=== PATIENT | female | born 1995 | race Caucasian/White ===

== ENCOUNTER 2018-11-02 06:28 | Emergency (ER) | payer MEDICAID, OTHER ==
[~2018-11-02] VITALS: Ht 170.2 cm; Wt 108.4 kg
[2018-11-02 06:30] VITALS: BP 131/64; PULSE 102; RESP 18; Ht 170.2 cm; Wt 108.4 kg
[2018-11-02] MEDS ORDERED: BENZ-6 PO (07:24)
[2018-11-02] MEDS ORDERED: MED4DP PO (07:24)
[2018-11-02] MEDS ORDERED: PROM6.2515 PO (07:24)
[2018-11-02] MEDS ORDERED: ALBU8.5H8 INH (07:24)
--- NOTE | 2018-11-02 09:00 | ERD ---
ER Documentation Chief Complaint Chief Complaint cough x 2 weeks HPI 23-year-old female presenting with cough times 2 weeks. Describes as a productive cough with no fevers. Occasional shortness of breath. No hemoptysis. No leg swelling. Has not taken medications for symptoms. Denies medical problems. NKDA. Surgical history denies. Social history denies ROS All systems reviewed and are negative except as per history of present illness. Medications Home Meds Active Scripts Albuterol Sulfate* (Proair HFA*) 8.5 Gm Hfa.aer.ad, 2 PUFF INH Q4, #1 INHALER Prov:PORFIRIO BOWIE PA-C 11/02/18 Methylprednisolone* (Medrol* DOSE PACK) 4 Mg/Dose-Pack Tab.ds.pk, 4 MG PO . DIRECTED, #1 PACKET Prov:PORFIRIO BOWIE PA-C 11/02/18 Benzonatate* (Tessalon Perle*) 100 Mg Capsule, 100 MG PO Q8H PRN for COUGH, #30 CAP Prov:PORFIRIO BOWIE PA-C 11/02/18 Promethazine Hcl* (Promethazine Hcl* Syrup) 6.25 Mg/5 Ml Syrup, 6.25 MG PO Q6H PRN for COUGH, #100 ML Prov:PORFIRIO BOWIE PA-C 11/02/18 Allergies Allergies: Coded Allergies: No Known Allergy (Unverified , 10/29/12) PMhx/Soc History of Surgery: No Anesthesia Reaction: No Hx Neurological Disorder: No Hx Respiratory Disorders: No Hx Cardiac Disorders: No Hx Psychiatric Problems: No Hx Miscellaneous Medical Probl: No Hx Alcohol Use: No Hx Substance Use: No Hx Tobacco Use: No Smoking Status: Never smoker FmHx Family History: No diabetes, No coronary disease, No other Physical Exam Vitals Vital Signs Date Temp Pulse Resp B/P (MAP) Pulse Ox O2 O2 Flow FiO2 Time Delivery Rate 11/02/18 98.7 102 18 131/64 99 06:30 (86) Physical Exam GENERAL: The patient is well-appearing, well-nourished, in no acute distress HEENT: Atraumatic. Conjunctivae are pink. Pupils equal, round, and reactive to light. There is no scleral icterus. Tympanic membranes clear bilaterally. Oropharynx clear. CHEST: Clear to auscultation bilaterally. There are no rales, wheezes or rhonchi. HEART: Regular rate and rhythm. No murmurs, clicks, rubs or gallops. Procedures/MDM DIAGNOSTIC IMAGING REPORT Patient: REGINO ELIZABETH : 1995 Age: 23 Sex: F MR #: [id number] DOS: 11/02/18 0644 Ordering MD: CADY BOWIE PA-C Location: [facility] Room/Bed: PROCEDURE: XR Chest. CLINICAL INDICATION: Cough TECHNIQUE: Single frontal view of the chest was obtained COMPARISON: None FINDINGS: The heart and mediastinum are within normal limits. The lungs are clear. There is no pleural effusion or pneumothorax. RPTAT: AA IMPRESSION: No acute disease. MDM: 23-year-old female presenting with cough. I will suspicion for pneumonia. I have low suspicion for respiratory distress or hypoxia. I have considered PE or other infectious etiology but I have low suspicion at this time. Patient likely has viral cough and be discharged with supportive medications. Patient is told if symptoms change or worsen to return immediately to the ER. All questions answered at discharge Departure Diagnosis: Primary Impression: Cough Condition: Stable Patient Instructions: Cough, Chronic, Uncertain Cause, (Adult) Referrals: [facility], [facility] YOU HAVE RECEIVED A MEDICAL SCREENING EXAM AND THE RESULTS INDICATE THAT YOU DO NOT HAVE A CONDITION THAT REQUIRES URGENT TREATMENT IN THE EMERGENCY DEPARTMENT. FURTHER EVALUATION AND TREATMENT OF YOUR CONDITION CAN WAIT UNTIL YOU ARE SEEN IN YOUR DOCTORS OFFICE WITHIN THE NEXT 1-2 DAYS. IT IS YOUR RESPONSIBILITY TO MAKE AN APPOINTMENT FOR FOLOW-UP CARE. IF YOU HAVE A PRIMARY DOCTOR --you should call your primary doctor and schedule an appointment IF YOU DO NOT HAVE A PRIMARY DOCTOR YOU CAN CALL OUR PHYSICIAN REFERRAL HOTLINE AT IF YOU CAN NOT AFFORD TO SEE A PHYSICIAN YOU CAN CHOSE FROM THE FOLLOWING [facility], [facility] [address] [facility] [address] [email or web address] [address] [facility] [address] [facility]. [facility] [address] [facility]. [facility] [address] Additional Instructions: FOLLOW UP WITH YOUR PRIMARY CARE PHYSICIAN TOMORROW.Return to this facility if you are not improving as expected. PORFIRIO BOWIE PA-C Nov 02, 2018 09:00
== END 2018-11-02 07:31 | disposition home or self-care (01) ==
LOC: FTE 06:28
DX: R05 Cough (principal)
CPT/HCPCS: 71045

== ENCOUNTER 2018-11-15 08:12 | Emergency (ER) | payer OTHER ==
[~2018-11-15] VITALS: Ht 177.8 cm; Wt 105.6 kg
[~2018-11-15 08:12] MED LIST: ALBU8.5H8 INH; BENZ-6 PO; MED4DP PO; PROM6.2515 PO
[2018-11-15 08:16] VITALS: BP 115/57; PULSE 80; RESP 20; Ht 177.8 cm; Wt 105.6 kg
[2018-11-15] MEDS ORDERED: SOD CHLORIDE 0.9% 1,000 ML IV STA (08:30)
[2018-11-15] MEDS ORDERED: KETOROLAC 30 MG INJ IV STA (08:30)
[2018-11-15] MEDS ORDERED: DIPHENHYDRAMINE 50 MG INJ IV STA (08:30)
[2018-11-15] MEDS ORDERED: ONDANSETRON 4 MG INJ IV STA (08:30)
[2018-11-15] MEDS ORDERED: BUTA1CAP38 PO (09:48)
--- NOTE | 2018-11-15 14:08 | ERD ---
ER Documentation Chief Complaint Chief Complaint Complain of severe headache since this am Hx of Migraine HPI 23-year-old female presenting with headache. Patient states she has had severe headaches intermittently over the last 2 weeks with it worsening this morning. Denies any vomiting but has severe light sensitivity. Has a history of migraines and feels this headache is slightly different with her "brain feeling on fire". Denies medical problems. NKDA. Surgical history denies. Social history denies ROS All systems reviewed and are negative except as per history of present illness. Medications Home Meds Active Scripts Mlpeovqths-Ferjdecvdqyqy-Qqzjpkmf* (Fioricet*) 50-300-40 Mg Capsule, 1 CAP PO Q4H PRN for HEADACHE, #30 CAP Prov:PORFIRIO BOWIE PA-C 11/15/18 Albuterol Sulfate* (Proair HFA*) 8.5 Gm Hfa.aer.ad, 2 PUFF INH Q4, #1 INHALER Prov:PORFIRIO BOWIE PA-C 11/02/18 Methylprednisolone* (Medrol* DOSE PACK) 4 Mg/Dose-Pack Tab.ds.pk, 4 MG PO . DIRECTED, #1 PACKET Prov:PORFIRIO BOWIE PA-C 11/02/18 Benzonatate* (Tessalon Perle*) 100 Mg Capsule, 100 MG PO Q8H PRN for COUGH, #30 CAP Prov:PORFIRIO BOWIE PA-C 11/02/18 Promethazine Hcl* (Promethazine Hcl* Syrup) 6.25 Mg/5 Ml Syrup, 6.25 MG PO Q6H PRN for COUGH, #100 ML Prov:PORFIRIO BOWIE PA-C 11/02/18 Allergies Allergies: Coded Allergies: No Known Allergy (Unverified , 10/29/12) PMhx/Soc Medical and Surgical Hx: pt denies Medical Hx, pt denies Surgical Hx History of Surgery: No Anesthesia Reaction: No Hx Neurological Disorder: No Hx Respiratory Disorders: No Hx Cardiac Disorders: No Hx Psychiatric Problems: No Hx Miscellaneous Medical Probl: No Hx Alcohol Use: No Hx Substance Use: No Hx Tobacco Use: No FmHx Family History: No diabetes, No coronary disease, No other Physical Exam Vitals Vital Signs Date Temp Pulse Resp B/P (MAP) Pulse Ox O2 O2 Flow FiO2 Time Delivery Rate 11/15/18 98.2 80 20 115/57 100 08:16 (76) Physical Exam GENERAL: The patient is well-appearing, well-nourished, in no acute distress HEENT: Atraumatic. Conjunctivae are pink. Pupils equal, round, and reactive to light. There is no scleral icterus. Tympanic membranes clear bilaterally. Oropharynx clear. NECK: C-spine is soft and supple. There is no meningismus. There is no cervical lymphadenopathy CHEST: Clear to auscultation bilaterally. There are no rales, wheezes or rhonchi. HEART: Regular rate and rhythm. No murmurs, clicks, rubs or gallops. Results 24 hrs Laboratory Tests Test 11/15/18 08:52 11/15/18 09:00 POC Beta HCG, Qualitative NEGATIVE Urine Color STRAW Urine Clarity CLEAR Urine pH 5.0 Urine Specific Cantil 1.012 Urine Ketones 2+ mg/dL Urine Nitrite NEGATIVE mg/dL Urine Bilirubin NEGATIVE mg/dL Urine Urobilinogen NEGATIVE mg/dL Urine Leukocyte Esterase NEGATIVE Ayan/ul Urine Hemoglobin NEGATIVE mg/dL Urine Glucose NEGATIVE mg/dL Urine Total Protein NEGATIVE mg/dl Current Medications Medications Dose Sig/Shahriar Start Time Status Last (Trade) Ordered Route PRN Stop Time Admin Dose Reason Admin Sodium 1,000 ml @ Q1H STAT 11/15/18 DC 11/15/18 Chloride 1,000 mls/hr IV 08:30 09:02 11/15/18 09:29 Ondansetron 4 mg ONCE STAT 11/15/18 DC 11/15/18 HCl (Zofran IV 08:30 09:02 Inj) 11/15/18 08:33 Ketorolac 30 mg ONCE STAT 11/15/18 DC 11/15/18 Tromethamine IV 08:30 09:02 (Toradol) 11/15/18 08:33 25 mg ONCE STAT 11/15/18 DC 11/15/18 Diphenhydrami IV 08:30 09:02 ne HCl 11/15/18 08:33 (Benadryl) Procedures/MDM DIAGNOSTIC IMAGING REPORT Patient: REGINO ELIZABETH : 1995 Age: 23 Sex: F MR #: [id number] DOS: 11/15/18 0830 Ordering MD: CADY BOWIE PA-C Location: [facility] Room/Bed: PROCEDURE: CT Brain without contrast. CLINICAL INDICATION: Headache. TECHNIQUE: A CT of the brain without contrast was performed utilizing axial sections from the skull base through the vertex. One or more the following does reduction techniques were utilized: Automated exposure control, adjustment of the mA/ or kV according to patient's size, or use of iterative reconstruction technique. Total exam CTDIvol is 39.64 MGy and DLP is 634.23 mGy-cm. DICOM images are available. COMPARISON: None available. FINDINGS: The ventricles and sulci are age-appropriate. There is no intracranial hemorrhage, mass effect or midline shift. No abnormal intra-axial or extra- axial fluid collections are seen. The daily/white matter differentiation is preserved. No acute skull abnormality is noted. The visualized paranasal sinuses are essentially clear. IMPRESSION: 1. No acute intracranial hemorrhage, transcortical infarction or mass effect. ER course: 1 L normal saline given ED. Benadryl, Toradol and Zofran given via IV and patient symptoms dramatically improved. She still had some light sensitivity however headache had resolved. MDM: 23-year-old female presenting with headache. I have low suspicion for intracranial hemorrhage or neuro deficit. I have low suspicion for meningitis or sepsis. Patient CT scan exam is within normal limits. Patient is discharged with stricter precautions and told to follow-up with primary care within 1-2 days for close evaluation. Patient is told if symptoms change or worsen to return to the ER immediately. All questions answered at discharge Departure Diagnosis: Primary Impression: Headache Condition: Stable Patient Instructions: Self-Care for Headaches Referrals: [facility] YOU HAVE RECEIVED A MEDICAL SCREENING EXAM AND THE RESULTS INDICATE THAT YOU DO NOT HAVE A CONDITION THAT REQUIRES URGENT TREATMENT IN THE EMERGENCY DEPARTMENT. FURTHER EVALUATION AND TREATMENT OF YOUR CONDITION CAN WAIT UNTIL YOU ARE SEEN IN YOUR DOCTORS OFFICE WITHIN THE NEXT 1-2 DAYS. IT IS YOUR RESPONSIBILITY TO MAKE AN APPOINTMENT FOR FOLOW-UP CARE. IF YOU HAVE A PRIMARY DOCTOR --you should call your primary doctor and schedule an appointment IF YOU DO NOT HAVE A PRIMARY DOCTOR YOU CAN CALL OUR PHYSICIAN REFERRAL HOTLINE AT IF YOU CAN NOT AFFORD TO SEE A PHYSICIAN YOU CAN CHOSE FROM THE FOLLOWING [facility] [address] [facility] [address] [facility] [facility] [address] [facility] [address] [facility] [facility] [address] [facility]. [facility] [address] Additional Instructions: FOLLOW UP WITH YOUR PRIMARY CARE PHYSICIAN TOMORROW.Return to this facility if you are not improving as expected. PORFIRIO BOWIE PA-C Nov 15, 2018 14:08
== END 2018-11-15 10:15 | disposition home or self-care (01) ==
LOC: FTE 08:12
DX: R51 Headache (principal)
CPT/HCPCS: 70450; 81003; 81025; 96374; 96375; J1200; J1885; J2405; J7030; Z7502

== ENCOUNTER 2018-11-20 14:36 | Emergency (ER) | payer OTHER ==
[~2018-11-20] VITALS: Ht 177.8 cm; Wt 107.0 kg
[~2018-11-20 14:36] MED LIST changes: +BUTA1CAP38 PO
[2018-11-20 14:52] VITALS: BP 124/60; PULSE 86; RESP 18; Ht 177.8 cm; Wt 107.0 kg
[2018-11-20] MEDS ORDERED: KETOROLAC 60 MG INJ IM STA (15:43)
[2018-11-20] MEDS ORDERED: ONDANSETRON (ODT) 4 MG TAB ODT STA (15:43)
[2018-11-20] MEDS ORDERED: HYDROCODONE/APAP (5/325) TAB PO ONE (16:00)
[2018-11-20] MEDS ORDERED: IBUP-1542 PO (16:33)
[2018-11-20] MEDS ORDERED: TRAM50TA2 PO (16:33)
--- NOTE | 2018-11-20 16:38 | ERD ---
ER Documentation Chief Complaint Chief Complaint ROBLES X 1 DAY HPI 23-year-old female presents with a headache worsening over last day. She was seen here 1 week ago for headache as well. She was prescribed Fioricet with minimal relief. Patient has a history of recurrent headaches since she was preadolescent. They are usually on the right side associated with photophobia, tearing of the right eye. She does admit to them being more frequent during certain times of year. She was treated with unspecified medication in [facility]. Has any recent illnesses, fevers, vomiting, weakness, bowel or bladder incontinence. She had a normal CT brain 1 week ago. ROS All systems reviewed and are negative except as per history of present illness. Medications Home Meds Active Scripts Tramadol HCl (Tramadol HCl) 50 Mg Tablet, 50 MG PO Q4 PRN for PAIN, #18 TAB Prov:ANGELITO GARRETT MD 11/20/18 Ibuprofen* (Motrin*) 600 Mg Tab, 600 MG PO Q6, #30 TAB Prov:ANGELITO GARRETT MD 11/20/18 Hlqxkgwkzg-Ujkkwegiobxzz-Htxmscaa* (Fioricet*) 50-300-40 Mg Capsule, 1 CAP PO Q4H PRN for HEADACHE, #30 CAP Prov:PORFIRIO BOWIE PA-C 11/15/18 Albuterol Sulfate* (Proair HFA*) 8.5 Gm Hfa.aer.ad, 2 PUFF INH Q4, #1 INHALER Prov:PORFIRIO BOWIE PA-C 11/02/18 Methylprednisolone* (Medrol* DOSE PACK) 4 Mg/Dose-Pack Tab.ds.pk, 4 MG PO . DIRECTED, #1 PACKET Prov:PORFIRIO BOWIE PA-C 11/02/18 Benzonatate* (Tessalon Perle*) 100 Mg Capsule, 100 MG PO Q8H PRN for COUGH, #30 CAP Prov:PORFIRIO BOWIE PA-C 11/02/18 Promethazine Hcl* (Promethazine Hcl* Syrup) 6.25 Mg/5 Ml Syrup, 6.25 MG PO Q6H PRN for COUGH, #100 ML Prov:PORFIRIO BOWIE PA-C 11/02/18 Allergies Allergies: Coded Allergies: No Known Allergy (Unverified , 11/20/18) PMhx/Soc History of Surgery: No Anesthesia Reaction: No Hx Neurological Disorder: No Hx Respiratory Disorders: No Hx Cardiac Disorders: No Hx Psychiatric Problems: No Hx Miscellaneous Medical Probl: Yes (MIGRAINE ) Hx Alcohol Use: No Hx Substance Use: No Hx Tobacco Use: No Smoking Status: Never smoker FmHx Family History: No diabetes, No coronary disease, No other Physical Exam Vitals Vital Signs Date Temp Pulse Resp B/P (MAP) Pulse Ox O2 O2 Flow FiO2 Time Delivery Rate 11/20/18 Nasal 6 15:46 Cannula 11/20/18 98.8 86 18 124/60 100 14:52 (81) Physical Exam Const: No acute distress. Photophobia. Head: Atraumatic Eyes: Normal Conjunctiva. Eyes Archie and extraocular movements intact. ENT: Normal External Ears, Nose and Mouth. Neck: Full range of motion. No meningismus. Resp: Clear to auscultation bilaterally Cardio: Regular rate and rhythm, no murmurs Abd: Soft, non tender, non distended. Normal bowel sounds Skin: No petechiae or rashes Back: No midline or flank tenderness Ext: No cyanosis, or edema Neur: Awake and alert. No appreciable focal neurologic deficits. Psych: Normal Mood and Affect Results 24 hrs Laboratory Tests Test 11/20/18 15:57 POC Beta HCG, Qualitative NEGATIVE Current Medications Medications Dose Sig/Shahriar Start Time Status Last (Trade) Ordered Route PRN Stop Time Admin Dose Reason Admin Ketorolac 60 mg ONCE STAT 11/20/18 DC 11/20/18 Tromethamine IM 15:43 11/20/18 16:02 (Toradol) 15:44 1 tab ONCE ONCE 11/20/18 DC 11/20/18 Acetaminophen PO 16:00 11/20/18 16:02 / 16:01 Hydrocodone Bitart ([place] (5/325)) Ondansetron 8 mg ONCE STAT 11/20/18 DC 11/20/18 HCl (Zofran ODT 15:43 11/20/18 16:01 Odt) 15:44 Procedures/MDM Patient presents with history, signs and symptoms suggestive of cluster headache. No significant change from 1 week ago to warrant repeat imaging. She has no signs of additional concerning symptoms and no deficits, signs of chest pain, abdominal pain, additional symptoms. Patient was given Toradol 60 mg IM, [place] 5 mg by mouth, Zofran 8 mg by mouth. She was placed on high flow nasal cannula oxygen and headache resolved to 2 out of 10 after observation and treatment. She will be discharged home with a short course of tramadol, ibuprofen, and recommendations for primary care follow-up and neurology evaluation for persistent or recurrent headaches. Doubt subarachnoid, no e vidence of neurologic deficit, meningismus. The patient was stable with no new complaints during the ER course. Clinically, there is no current evidence to suggest meningitis, sepsis, acute abdomen, pneumonia, stroke, acute coronary syndrome, pulmonary embolism, aortic dissection or any other emergent condition appearing to require further evaluation or hospitalization. Patient counseled regarding my diagnostic impression and care plan. Prior to discharge all questions answered. Pt agrees with treatment plan and understands strict return precautions. Pt is instructed to follow up with primary care provider within 24- 48 hours. Precautionary instructions provided including instructions to return to the ER if not improving or for any worsening or changing symptoms or concerns. Departure Diagnosis: Primary Impression: Headache Headache type: unspecified Headache chronicity pattern: unspecified pattern Intractability: not intractable Qualified Codes: R51 - Headache Condition: Stable Patient Instructions: Headache, Unspecified, Headache, Cluster Referrals: DOCTOR,NOT ON STAFF (PCP) Additional Instructions: Symptoms suggest cluster headache. Recheck with primary doctor. Consider neurology for further evaluation and treatment. ANGELTIO GARRETT MD Nov 20, 2018 16:38
== END 2018-11-20 17:02 | disposition home or self-care (01) ==
LOC: FTE 14:36
DX: R51 Headache (principal)
CPT/HCPCS: 81025; 96372; J1885; Z7502; Z7610

== ENCOUNTER 2019-01-24 21:57 | Emergency (ER) | payer OTHER ==
[~2019-01-24] VITALS: Ht 175.3 cm; Wt 106.2 kg
[~2019-01-24 21:57] MED LIST changes: +IBUP-1542 PO; +TRAM50TA2 PO
[2019-01-24 22:07] VITALS: Ht 175.3 cm; Wt 106.2 kg
[2019-01-24] MEDS ORDERED: IBUP800T48 PO (23:16)
--- NOTE | 2019-01-24 23:19 | ERD ---
ER Documentation Chief Complaint Chief Complaint C/O LT SIDED CP RADIATING TO BACK SINCE THIS AM HPI This 23-year-old female complains of sharp left posterior chest wall pain that radiates around to the left mid axillary line. The patient states the pain is worse when she sits and feels relief when she lays flat. She is had this for 1 days onset this morning. No substernal chest pain no shortness of breath no fever or cough ROS All systems reviewed and are negative except as per history of present illness. Medications Home Meds Active Scripts Ibuprofen* (Motrin*) 800 Mg Tab, 800 MG PO Q6H PRN for PAIN AND OR ELEVATED TEMP, #30 TAB Prov:RUTH LÓPEZ DO 01/24/19 Tramadol HCl (Tramadol HCl) 50 Mg Tablet, 50 MG PO Q4 PRN for PAIN, #18 TAB Prov:ANGELITO GARRETT MD 11/20/18 Ibuprofen* (Motrin*) 600 Mg Tab, 600 MG PO Q6, #30 TAB Prov:ANGELITO GARRETT MD 11/20/18 Mcslcmysrk-Hmliieegcsrmw-Srzahweb* (Fioricet*) 50-300-40 Mg Capsule, 1 CAP PO Q4H PRN for HEADACHE, #30 CAP Prov:PORFIRIO BOWIE PA-C 11/15/18 Albuterol Sulfate* (Proair HFA*) 8.5 Gm Hfa.aer.ad, 2 PUFF INH Q4, #1 INHALER Prov:PORFIRIO BOWIE PA-C 11/02/18 Methylprednisolone* (Medrol* DOSE PACK) 4 Mg/Dose-Pack Tab.ds.pk, 4 MG PO . DIRECTED, #1 PACKET Prov:PORFIRIO BOWIE PA-C 11/02/18 Benzonatate* (Tessalon Perle*) 100 Mg Capsule, 100 MG PO Q8H PRN for COUGH, #30 CAP Prov:PORFIRIO BOWIE PA-C 11/02/18 Promethazine Hcl* (Promethazine Hcl* Syrup) 6.25 Mg/5 Ml Syrup, 6.25 MG PO Q6H PRN for COUGH, #100 ML Prov:PORFIRIO BOWIE PA-C 11/02/18 Allergies Allergies: Coded Allergies: No Known Allergy (Unverified , 11/20/18) PMhx/Soc History of Surgery: No Anesthesia Reaction: No Hx Neurological Disorder: No Hx Respiratory Disorders: No Hx Cardiac Disorders: No Hx Psychiatric Problems: No Hx Miscellaneous Medical Probl: Yes (MIGRAINE ) Hx Alcohol Use: No Hx Substance Use: No Hx Tobacco Use: No Smoking Status: Never smoker FmHx Family History: No coronary disease Physical Exam Vitals Vital Signs Date Temp Pulse Resp B/P (MAP) Pulse Ox O2 O2 Flow FiO2 Time Delivery Rate 01/24/19 97.2 63 17 122/63 100 22:07 (82) Physical Exam Const: Well-developed, well-nourished Head: Atraumatic, normocephalic Eyes: Normal Conjunctiva, PERRLA, EOMI, normal sclera, no nystagmus ENT: Normal External Ears, Nose and Mouth, moist mucus membranes. Neck: Full range of motion. No meningismus, no lymphadenopathy. Resp: Clear to auscultation bilaterally, no wheezing, rhonchi, rales left posterior chest wall tenderness to palpation Cardio: Regular rate and rhythm, no murmurs, S1 S2 present Abd: Soft, non tender x 4, non distended. Normal bowel sounds, no guarding or rebound, no pulsitile abdominal masses or bruits Skin: No petechiae or rashes, no ecchymosis , no maculopapular rash Back: No midline or flank tenderness Ext: No cyanosis, or edema, FROM x 4, normal inspection, neurovascularly intact x 4 Neur: Awake and alert, STR 5/5 x 4, sensation intact x 4, no focal findi ngs, cerebellum intact Psych: Normal Mood and Affect Procedures/MDM EKG: Rate/Rhythm: Normal Sinus Rhythm,NL intervals QRS, ST, QT: NORMAL ND, QRS, QT] Impression: NORMAL EKG Patient's pain is clearly musculoskeletal in nature being positional and reproducible Departure Diagnosis: Primary Impression: Chest wall pain Condition: Stable Patient Instructions: Chest Wall Strain RUTH LÓPEZ DO January 24, 2019 23:19
[2019-01-24 23:22] VITALS: BP 120/53; PULSE 67; RESP 16
== END 2019-01-24 23:22 | disposition home or self-care (01) ==
LOC: E/R 21:57
DX: R07.89 Other chest pain (principal)
CPT/HCPCS: 93005; Z7502